=== PATIENT | male | born 1950 | race Caucasian/White ===

== ENCOUNTER 2020-01-16 04:12 | Observation (INO) ==
[2020-01-16] MEDS ORDERED: Naloxone 0.4 MG/ML INJ IVP PRN ×2 (06:26→07:29)
[2020-01-16] MEDS ORDERED: *HR* Promethazine 25 MG/ML VIAL IVP PRN (06:26)
[2020-01-16] MEDS: 0.9 % Sodium Chloride 1,000 ML IVC SCH ×2 (06:48→17:51)
[2020-01-16 07:10] LABS: INR 1.1; Prothrombin Time 12.5 Seconds (9.4-12.1)
[2020-01-16 07:24] LABS: Alanine Aminotransferase 17 Units/L (7-52); Albumin 3.8 g/dL (3.5-5.7); Albumin/Globulin Ratio 1.6 (1.1-2.2); Alkaline Phosphatase 64 Units/L (34-104); Aspartate Amino Transferase 23 Units/L (13-39); BUN/Creatinine Ratio 13 (6-26); Bilirubin,Total 0.7 mg/dL (0.3-1.0); Blood Urea Nitrogen 9 mg/dL (8-23); Calcium 8.7 mg/dL (8.6-10.3); Carbon Dioxide 19 mEq/L (23-29); Chloride 111 mEq/L (98-107); Cholesterol 179 mg/dL (< 200); Globulin 2.4 g/dL (2.4-3.5); Glucose 100 mg/dL (70-105); HDL Cholesterol 60 mg/dL (40-59); LDL Cholesterol,Calculated 84 mg/dL (0-99); Magnesium 1.8 mg/dL (1.6-2.6); Osmolality,Calculated 293 (280-300); Phosphorous 2.3 mg/dL (2.7-4.5); Potassium 3.3 mEq/L (3.5-5.1); Sodium 142 mEq/L (136-145); Total Protein 6.2 g/dL (6.4-8.9); Triglycerides 176 mg/dL (< 150); eGFR For African Americans > 60 (> 60); eGFR For Non-African Americans > 60 (> 60)
[2020-01-16] MEDS ORDERED: Acetaminophen 325 MG TABLET PO PRN (07:29)
[2020-01-16] MEDS ORDERED: *HR* LORazepam 2 MG/ML VIAL IVP PRN ×3 (07:34)
[2020-01-16] MEDS: Vitamin B Complex/Vit C/Vit E 1 EACH TABLET PO SCH (09:19)
[2020-01-16] MEDS: Thiamine (B-1) 100 MG TABLET PO SCH (09:19)
[2020-01-16] MEDS: Folic Acid 1 MG TABLET PO SCH (09:19)
[2020-01-16 10:21] LABS: Bilirubin,Urine Negative (Negative); Blood,Urine Negative (Negative); Clarity,Urine Clear (Clear); Color,Urine Light-Yellow (Yellow); Glucose,Urine (UA) Normal (Normal); Ketones,Urine Negative (Negative); Leukocyte Esterase,Urine Negative (Negative); Nitrite,Urine Negative (Negative); PH,Urine 6.5 pH Units (5.0-8.0); Protein,Urine Trace mg/dL (Neg-Trace); Specific Gravity,Urine 1.014 (1.010-1.025); Urobilinogen,Urine Normal (Normal)
[2020-01-16] MEDS: Apixaban 5 MG TABLET PO SCH ×2 (12:23→20:41)
[2020-01-16] MEDS: *HR* LORazepam 0.5 MG TABLET PO SCH ×3 (12:23→20:41)
[2020-01-16] MEDS: atenoloL 50 MG TABLET PO SCH (12:23)
[2020-01-16] MEDS: levETIRAcetam 250 MG TABLET PO SCH (20:41)
[2020-01-17 03:05] LABS: BUN/Creatinine Ratio 23 (6-26); Blood Urea Nitrogen 17 mg/dL (8-23); Calcium 8.5 mg/dL (8.6-10.3); Carbon Dioxide 21 mEq/L (23-29); Chloride 114 mEq/L (98-107); Glucose 106 mg/dL (70-105); Osmolality,Calculated 292 (280-300); Phosphorous 2.3 mg/dL (2.7-4.5); Sodium 140 mEq/L (136-145); eGFR For African Americans > 60 (> 60); eGFR For Non-African Americans > 60 (> 60)
[2020-01-17 03:18] LABS: Basophils # 0.1 K/mcL (0.0-0.2); Basophils % 0.8 %; Eosinophils # 0.4 K/mcL (0.0-0.6); Eosinophils % 5.7 %; Hematocrit 39.3 % (37.5-50.1); Hemoglobin 12.8 g/dL (12.9-16.9); Immature Granulocytes % 0.6 % (0-4); Lymphocytes # 1.1 K/mcL (0.6-4.6); Lymphocytes % 14.6 %; Mean Corpuscular HGB Conc 32.6 g/dL (31.6-35.5); Mean Corpuscular Hemoglobin 29.3 pg (28.0-33.3); Mean Corpuscular Volume 89.9 fL (83.0-100.0); Mean Platelet Volume 10.3 fL (9.4-12.4); Monocytes # 0.6 K/mcL (0.0-1.3); Monocytes % 7.2 %; Neutrophils # 5.5 K/mcL (1.6-8.9); Platelet Count 199 K/mcL (140-400); Red Blood Count 4.37 M/mcL (4.19-5.50); Red Cell Distribution Width 13.7 % (11.5-14.5); Segmented Neutrophils % 71.1 %; White Blood Count 7.7 K/mcL (4.3-11.1)
[2020-01-17] MEDS ORDERED: Potassium Phosphate 44 MEQ in 0.9 % Sodium Chloride 250 ML IVPB ONE (07:32)
[2020-01-17] MEDS ORDERED: Loratadine 10 MG TABLET PO SCH (09:00)
[2020-01-17] MEDS ORDERED: amLODIPine 5 MG TABLET PO SCH (09:00)
[2020-01-17] MEDS: Apixaban 5 MG TABLET PO SCH (09:55)
[2020-01-17] MEDS: levETIRAcetam 250 MG TABLET PO SCH (09:56)
[2020-01-17] MEDS: Vitamin B Complex/Vit C/Vit E 1 EACH TABLET PO SCH (09:56)
[2020-01-17] MEDS: Folic Acid 1 MG TABLET PO SCH (09:57)
[2020-01-17] MEDS: Thiamine (B-1) 100 MG TABLET PO SCH (09:57)
[2020-01-17] MEDS: atenoloL 50 MG TABLET PO SCH (09:57)
[2020-01-17 11:18] VITALS: BP 134/79
== END 2020-01-17 12:45 | disposition home or self-care (01) ==
LOC: 3BNU → SUATTDRO 05:33
PROVIDERS: ADMIT Pharmacist; ATTEND Family Medicine